=== PATIENT | male | born 1995 | race Caucasian/White ===

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

== ENCOUNTER 2017-09-14 11:05 | Emergency (ER) | payer OTHER ==
--- NOTE | 2017-09-14 11:26 | EDM.PDOC ---
ED HPI GENERAL MEDICAL PROBLEM - General Chief Complaint: ENT Problem Stated Complaint: BUMPS ON THE BACK OF TONGUE Time Seen by Provider: 09/14/17 11:12 - History of Present Illness INITIAL COMMENTS - FREE TEXT/NARRATIVE: HISTORY AND PHYSICAL: History of present illness: The patient is a 21-year-old male who presents with concerns about bumps he saw at the posterior aspect of his tongue when he was looking his throat recently. He has had no sore throat or pain no difficulty swallowing or speaking and no other systemic complaints such as fevers chills chest pain or shortness of breath. The patient has been tested for HIV and is negative but because of his sexual orientation and seeing these bumps he was concerned that he had infection. He went on the Internet and got even more concerned and is here for evaluation Review of systems: As per history of present illness and below otherwise all systems reviewed and negative. Past medical history: As per history of present illness and as reviewed below otherwise noncontributory. Surgical history: As per history of present illness and as reviewed below otherwise noncontributory. Social history: No reported history of drug or alcohol abuse. Family history: As per history of present illness and as reviewed below otherwise noncontributory. Physical exam: General: Well-developed well-nourished man who is nontoxic and vital signs reviewed by me HEENT: Atraumatic, normocephalic, pupils reactive, negative for conjunctival pallor or scleral icterus, mucous membranes moist, throat clear, neck supple, nontender, trachea midline. There are no oral lesions seen and there is no posterior oropharyngeal erythema. On evaluation of the tongue the anatomy is normal without any atypical lesions seen in the area of the patient's concern. There is no cervical adenopathy or nuchal rigidity Lungs: Clear to auscultation, breath sounds equal bilaterally, chest nontender. Heart: S1S2, regular rate and rhythm no overt murmurs Abdomen: Soft, nondistended, nontender. NABS Pelvis: Deferred Genitourinary: Deferred. Rectal: Deferred. Extremities: Deferred Neuro: Awake, alert, oriented. Motor and sensory unremarkable throughout. Exam nonfocal. Diagnostics: [] Therapeutics: [] Impression: Worried well Definitive disposition and diagnosis as appropriate pending reevaluation and review of above. - Related Data Allergies Allergy/AdvReac Type Severity Reaction Status Date / Time No Known Allergies Allergy Verified 09/14/17 11:16 Home Meds: Home Meds Non-Formulary Medication [NF Drug] 1 tab PO ASDIRECTED PRN 09/14/17 [History] Past Medical History - Past Health History Medical/Surgical History: Denies Medical/Surgical History Psychiatric History: Reports: Anxiety Social & Family History - Family History Family Medical History: Noncontributory ED ROS GENERAL - Review of Systems Review Of Systems: ROS reveals no pertinent complaints other than HPI. ED EXAM, GENERAL - Physical Exam Exam: See Below (See dictation) Course - Vital Signs Last Recorded V/S: Last Vital Signs Temp 36.7 C 09/14/17 11:14 Pulse 88 09/14/17 11:14 Resp 20 09/14/17 11:14 BP 145/86 H 09/14/17 11:14 Pulse Ox 97 09/14/17 11:14 Departure - Departure Time of Disposition: 11:26 Disposition: Home, Self-Care 01 Condition: Good Clinical Impression: Physically well but worried - Discharge Information Referrals: PCP,None [Primary Care Provider] - Additional Instructions: The following information is given to patients seen in the emergency department who are being discharged to home. This information is to outline your options for follow-up care. We provide all patients seen in our emergency department with a follow-up referral. The need for follow-up, as well as the timing and circumstances, are variable depending upon the specifics of your emergency department visit. If you don't have a primary care physician on staff, we will provide you with a referral. We always advise you to contact your personal physician following an emergency department visit to inform them of the circumstance of the visit and for follow-up with them and/or the need for any referrals to a consulting specialist. The emergency department will also refer you to a specialist when appropriate. This referral assures that you have the opportunity for followup care with a specialist. All of these measure are taken in an effort to provide you with optimal care, which includes your followup. Under all circumstances we always encourage you to contact your private physician who remains a resource for coordinating your care. When calling for followup care, please make the office aware that this follow-up is from your recent emergency room visit. If for any reason you are refused follow-up, please contact the [facility] emergency department at and ask to speak to the emergency department charge nurse. [facility] Primary care- Internal Medicine and Family [address] [id number] Please call and follow-up with one of our clinic providers for further care and evaluation and return to ER as needed as discussed
[2017-09-14 11:54] VITALS: BP 132/73
== END 2017-09-14 11:35 | disposition home or self-care (01) ==
LOC: MW.ED 11:05
DX: Z71.1 Person with feared health complaint in whom no diagnosis is made (principal)
CPT/HCPCS: 99282